=== PATIENT | male | born 1985 | race Caucasian/White ===

== ENCOUNTER 2019-03-28 14:01 | Emergency (ER) | payer MEDICAID, SELFPAY ==
[2019-03-28] MEDS ORDERED: Ibuprofen 800 MG TAB ONE (14:18)
[2019-03-28] MEDS ORDERED: Adacel (T-DAP) 0.5 ML SYRINGE ONE (14:18)
--- NOTE | 2019-03-28 18:04 | RAD ---
LEFT HAND THREE VIEWS: Date: 03-28-19 FINDINGS: There is a fracture of the fifth metacarpal with palmar angulation of the distal fragment. The remain samy of the hand and wrist appeared intact. IMPRESSION: Angulated fracture of the distal fifth metacarpal at the neck. POS: HOME
== END 2019-03-28 14:54 | disposition home or self-care (01) ==
LOC: BURERS 14:01
DX: S62.337A Displaced fracture of neck of fifth metacarpal bone, left hand, initial encounter for closed fracture (principal); X58.XXXA Exposure to other specified factors, initial encounter
CPT/HCPCS: 29125; 90471; 90715

== ENCOUNTER 2019-04-12 19:58 | Emergency (ER) | payer MEDICAID, SELFPAY ==
--- NOTE | 2019-04-12 21:42 | RAD ---
LEFT HAND THREE VIEWS: 04/12/19 Comparison is made with the 03/28/19 study. The fracture of the distal fifth metacarpal is again noted with mild volar angulation of the distal p ortion. The degree of angulation has not changed significantly. Callus is beginning to form at one ed ge of the fracture. Soft tissue swelling around it has worsened, however. The remainder of that hand showed no acute change. IMPRESSION: Healing fracture of the fifth metacarpal. Alignment little different than before, but soft tissue swe lling is worse. POS: HOME
[2019-04-12 22:13] LABS: #Basophils 0.1 thou/uL (0.0-0.2); #Eosinphils 0.1 thou/uL (0.0-0.7); #Lymphocytes 2.5 thou/uL (1.20-3.40); #Neutrophils 6.7 thou/uL (1.40-6.50); %Basophils 0.9 % (0.0-1.0); %Eosinophils 0.5 % (0.0-10.0); %Lymphocytes 24.2 % (21.0-51.0); %Monocytes 9.3 % (0.0-10.0); %Neutrophils 65.1 % (42.0-75.0); Mean Corpuscular Hemoglobin 30.6 pg (27.0-31.0); Mean Corpuscular Volume 89.9 fL (78.0-98.0); Platelet Count 239 thou/uL (130-400); RBC Distribution Width 12.1 % (11.5-14.5); Red Blood Cell (RBC) Count 4.59 mill/uL (4.70-6.10); White Blood Cell (WBC) Count 10.3 thou/uL (4.8-10.8)
[2019-04-12] MEDS ORDERED: Ketorolac Tromethamine 30 MG/ML VIAL ONE (23:09)
== END 2019-04-13 00:40 | disposition short-term general hospital (02) ==
LOC: BURERS 19:58
DX: S62.337A Displaced fracture of neck of fifth metacarpal bone, left hand, initial encounter for closed fracture (principal); L02.414 Cutaneous abscess of left upper limb; X58.XXXA Exposure to other specified factors, initial encounter
CPT/HCPCS: 85025; 96361; 96374; J1885